=== PATIENT | male | born 1975 | race Two or more races ===

== ENCOUNTER 2020-11-18 13:18 | Emergency (ER) | payer SELFPAY ==
[~2020-11-18] VITALS: Ht 170.2 cm; Wt 68.0 kg
[2020-11-18 13:20] VITALS: BP 166/106
[2020-11-18] MEDS ORDERED: ONDANSETRON PF 4 MG/2 ML VIAL. IVP ONE (14:45)
[2020-11-18] MEDS ORDERED: chlorproMAZINE 25 MG in IV DEXTROSE 5% 50 ML IV ONE (15:00)
--- NOTE | 2020-11-18 15:24 | PHYS DOC ---
Past Medical History Past Medical History: No Pertinent History Past Surgical History: Other Additional Past Surgical Histo: r clavicle Smoking Status: Never Smoker Alcohol Use: None General Adult EDM: Chief Complaint: HICCUPS/SINGULTUS HPI: HPI: Patient is a 44 year old male who presents with 5 days ago had a broken clavicle repair surgery at [facility]. He began having hiccups right after and went back to the hospital. They stated this was a normal finding after having surgery. However the hiccups have continued and he is unable to sleep and is becoming painful. He states it also makes him nauseated makes him gag. He rates his discomfort at a 5 out of 10. Qatari-speaking and foreign language interpreter phone is used. Review of Systems: Review of Systems: Constitutional: Denies fever or chills. [] Eyes: Denies change in visual acuity. [] HENT: Denies nasal congestion or sore throat. + Hiccups [] Respiratory: Denies cough or shortness of breath. [] Cardiovascular: Denies chest pain or edema. [] GI: Denies abdominal pain, +nausea, denies vomiting, bloody stools or diarrhea. [] : Denies dysuria. [] Musculoskeletal: Denies back pain or joint pain. [] Integument: Denies rash. [] Neurologic: Denies headache, focal weakness or sensory changes. [] Endocrine: Denies polyuria or polydipsia. [] Lymphatic: Denies swollen glands. [] Psychiatric: Denies depression or anxiety. [] Heart Score: C/O Chest Pain: No Risk Factors: Risk Factors: DM, Current or recent (<one month) smoker, HTN, HLP, family history of CAD, obesity. Risk Scores: Score 0 - 3: 2.5% MACE over next 6 weeks - Discharge Home Score 4 - 6: 20.3% MACE over next 6 weeks - Admit for Clinical Observation Score 7 - 10: 72.7% MACE over next 6 weeks - Early Invasive Strategies Current Medications: Current Medications Medications (Trade) Dose Ordered Sig/Reva Start Time Stop Time Status Last Admin Dose Admin Chlorpromazine HCl 25 mg/Dextrose 51 ml @ 100 mls/hr 1X ONCE 11/18/20 15:00 11/18/20 15:30 11/18/20 14:55 100 MLS/HR Ondansetron HCl (Zofran) 4 mg 1X ONCE 11/18/20 14:45 11/18/20 14:46 DC 11/18/20 14:55 4 MG Allergies: Allergies: Allergies Coded Allergies Type Severity Reaction Last Updated Verified No Known Drug Allergies 11/18/20 No Physical Exam: PE: Constitutional: Well developed, well nourished, no acute distress, non-toxic appearance. [] HENT: Normocephalic, atraumatic, bilateral external ears normal, oropharynx moist, no oral exudates, nose normal. Hiccups noted [] Eyes: PERRLA, EOMI, conjunctiva normal, no discharge. [] Neck: Normal range of motion, no tenderness, supple, no stridor. [] Cardiovascular:Heart rate regular rhythm, no murmur [] Lungs & Thorax: Bilateral breath sounds clear to auscultation [] Abdomen: Bowel sounds normal, soft, no tenderness, no masses, no pulsatile masses. [] Skin: Warm, dry, no erythema, no rash. [] Back: No tenderness, no CVA tenderness. [] Extremities: No tenderness, no cyanosis, no clubbing, ROM intact, no edema. [] Neurologic: Alert and oriented X 3, normal motor function, normal sensory function, no focal deficits noted. [] Psychologic: Affect normal, judgement normal, mood normal. [] Current Patient Data: Vital Signs: Vital Signs Date Time Temp Pulse Resp B/P (MAP) Pulse Ox O2 Delivery O2 Flow Rate FiO2 11/18/20 13:20 98.7 77 16 166/106 (126) 100 Room Air 98.7 EKG: EK and read by Dr. Melchor is sinus rhythm and no STEMI Radiology/Procedures: Radiology/Procedures: [] Course & Med Decision Making: Course & Med Decision Making Pertinent Labs and Imaging studies reviewed. (See chart for details) See HPI. alert and oriented x4. Ambulatory with a steady gait. Speaks in full clear sentences. Hiccups are noted. Vital signs are within normal limits. After talking with Dr. Melchor patient is given Thorazine IV. After this patie nt's hiccups have stopped. Patient states he is feeling much better. [] Dragon Disclaimer: Dragon Disclaimer: This electronic medical record was generated, in whole or in part, using a voice recognition dictation system. Departure Departure Impression: Primary Impression: Hiccup Disposition: HOME / SELF CARE / HOMELESS Condition: STABLE Referrals: NO PCP (PCP) Patient Instructions: Hiccups Additional Instructions: Follow-up with your primary care provider or your surgeon. Drink plenty of fluids. If the hiccups come back come back to hospital. CLARE FARIA APRN Nov 18, 2020 15:24
--- NOTE | 2020-11-18 17:57 | EKG ---
[facility] [address] [place] [address] Test Date: 2020-11-18 Test Time: 14:47:40 Pat Name: JUAN PABLO GONG Department: Room: Gender: Net Lead Developer: : [id number] Requested By: CLARE FARIA Order Number: [id number] Reading MD: Measurements Intervals [place] Rate: 70 P: 0 MN: 158 QRS: 5 QRSD: 88 T: 43 QT: 414 QTc: 450 Interpretive Statements SINUS RHYTHM NORMAL ECG RI6.02 No previous ECG available for comparison
== END 2020-11-18 15:40 | disposition home or self-care (01) ==
LOC: ER 13:18
DX: R06.6 Hiccough (principal); R11.0 Nausea
CPT/HCPCS: 93005; 96365; 96375; 99284; J2405; J3230; J7060

== ENCOUNTER 2020-11-18 20:52 | Emergency (ER) | payer SELFPAY ==
[2020-11-18 13:20] VITALS: BP 166/106
== END 2020-11-18 21:39 | disposition left against medical advice (07) ==
LOC: ER 20:52
DX: R06.6 Hiccough (principal); Z53.21 Procedure and treatment not carried out due to patient leaving prior to being seen by health care provider